=== PATIENT | female | born 1970 | race Caucasian/White ===

== ENCOUNTER 2017-07-17 12:04 | Observation (INO) ==
[2017-07-17] MEDS ORDERED: Levofloxacin 500 MG/100 ML 500 MG/100 ML BAG IVPB ONE (12:34)
[2017-07-17] MEDS ORDERED: Albuterol 2.5 MG/3 ML NEBULIZER IH ONE (12:34)
[2017-07-17] MEDS ORDERED: Plasma-Lyte A (PH 7.4) 1,000 ML IVC SCH (12:45)
[2017-07-17] MEDS ORDERED: Famotidine 20 MG/2 ML VIAL IVP ONE (14:28)
[2017-07-17] MEDS ORDERED: Metoclopramide 10 MG/2 ML VIAL IVP ONE (14:28)
[2017-07-17] MEDS ORDERED: Pregabalin 50 MG CAPSULE PO STA (14:28)
[2017-07-17] MEDS ORDERED: Acetaminophen IV 1,000 MG/100 ML INFUS..BTL IVPB ONE (14:28)
--- NOTE | 2017-07-17 14:33 | Anesthesia Evaluation PreOp ---
Date of Encounter: 07/17/17 Time of Encounter: 14:31 - Past History Planned Operation: Pubovaginal sling w/ autologous fascia Cardiac History: Hyperlipidemia (previously maintained on a Statin currently), Other (Hx murmur) Pulmonary History: Former smoker, Asthma (Not hospitalizations, No intubations) , COPD (maintained Ventolin, Tessalon perles), Snore, DARIEL Dx (Possible, but not diagnosed) GIFTED TEACHER History: Denies Any Significant HX Other Medical History: Hepatic (Hepatic lesions [cancer?] awaiting CT scan for further work-up), GERD (maintained on Omeprazole), Other (Hx Cervical Ca s/p LEEP) Anesthesia History: No Prior Anesthetic Complications, Past Anesthesia (LAVH 2007, T&A, Patricia Sawant, Dental surgery 2018, L-eye surgery) Alcohol Use: none Drug use: none Medications and Allergies Albuterol Sulfate [Albuterol Inhaler] 2 puff IH Q6H PRN 10/12/15 [History] Benzonatate [Benzonatate] 100 mg PO TID PRN 07/17/17 [History] Guaifenesin/Pseudoephedrne HCl [Guaifenesin-Pse ER 600-60 mg] 1 tab PO BID PRN 07/17/17 [History] Omeprazole [PriLOSEC] 40 mg PO DAILY 07/17/17 [History] 3 Allergy/AdvReac Type Severity Reaction Status Date / Time Amoxicillin [From Amoxil] Allergy Hives Verified 07/17/17 13:22 ampicillin Allergy Hives Verified 07/17/17 13:22 Apple Allergy Hives Verified 07/17/17 13:22 Penicillins Allergy Hives Verified 07/17/17 13:22 dust Allergy Sneezing Uncoded 07/17/17 13:22 - Meds/Allergy Pre-op Review Medications Reviewed: Yes Allergies Reviewed: Yes Beta Blockers on Current Med List: No Anesthesia Results - Imaging EKG: image reviewed (90bpm SR) Anesthesia Exam O2 Sat Height 1.63 m Height 1.63 m Height 1.63 m Weight 93.894 kg Weight 93.894 kg Weight 93.894 kg O2 Sat by Pulse Oximetry 97 O2 Sat by Pulse Oximetry 97 Vital Signs Temp Pulse Resp BP Pulse Ox 98.9 F 67 18 114/74 97 07/17/17 12:23 07/17/17 12:23 07/17/17 12:23 07/17/17 12:23 07/17/17 12:23 Height: 5'5" Weight: 205# BMI = 35.5 NPO (# of Hours): MNoc Pain Scale Used: Numeric (1 - 10) - HEENT Pupil (Motor): Pupils equal, EOMI Mallampati: II Teeth: Edentulous Oral Opening: Greater than 3 - GIFTED TEACHER LOC: Oriented GIFTED TEACHER Motor: Normal RUE, Normal LUE, Normal RLE, Normal LLE, Normal Face GIFTED TEACHER Sensory: Normal: RUE, LUE, RLE, LLE, Face - Cardiac Rhythm: Regular Murmur: None - Pulmonary Breath Sounds: bilateral Clear Respiratory Effort: Symmetrical Anesthesia Assess/Plan ASA Score: 2 (Asthma, Obesity,) Modified [place] Scale for Level of Consciousness: Cooperative, oriented, and tranquil Anesthetic Plan: General Autologous Blood: Yes Monitoring Plan: Standard Monitors Recovery Plan: PACU Anes Supervising Prov Stmt: Pt seen/evaluated, R&B discussed, questions answered and consent obtained. Belen Powell MD
[2017-07-17] MEDS ORDERED: diazePAM 5 MG TABLET PO STA (15:05)
[2017-07-17] MEDS ORDERED: *HR* Propofol 200 MG/20 ML VIAL IVP ONE (15:23)
[2017-07-17] MEDS ORDERED: Ondansetron 4 MG/2 ML VIAL ONE (15:23)
[2017-07-17] MEDS ORDERED: *HR* FentaNYL (PF) 100 MCG/2 ML VIAL ONE (15:23)
[2017-07-17] MEDS ORDERED: Lidocaine -MPF 2% 2 ML VIAL ONE ×2 (15:23)
[2017-07-17] MEDS ORDERED: *HR* Succinylcholine 200 MG/10 ML VIAL IVP ONE (15:23)
[2017-07-17] MEDS ORDERED: *HR* Midazolam HCl 2 MG/2 ML VIAL ONE (15:23)
[2017-07-17] MEDS ORDERED: Dexamethasone 4 MG/ML VIAL ONE (15:23)
[2017-07-17] MEDS ORDERED: Ketorolac 30 MG/ML VIAL ONE (15:23)
--- NOTE | 2017-07-17 15:29 | History & Physical Report ---
Date of Encounter: 07/17/17 Time of Encounter: 15:28 24 Hour HP Update - Instructions Instructions: If the History and Physical is less than 30 days old and was completed prior to A.M. admission and or procedure and has NOT been updated on calendar day of procedure please complete this update prior to performing procedure. - Update Patient reports changes in Medical Condition: No Changes in examination, assessment, or condition: No Changes in Medication: No Preop tests/diagnostics Reviewed: Yes Surgery Remains Indicated: Yes Consent for Planned Operative Procedure(s) Verified: Yes - Pre-Operative Checklist Preoperative Checklist Indicated: Yes Prophylactic Antibiotic Ordered: Yes Home Medications Include Beta Thalia: No Is VTE Prophylaxis Indicated?: Yes
[2017-07-17] MEDS ORDERED: *HR* Rocuronium Bromide 50 MG/5 ML VIAL ONE (16:08)
[2017-07-17] MEDS ORDERED: Neostigmine Methylsulfate 3 MG/3 ML SYRINGE ONE (16:11)
[2017-07-17] MEDS ORDERED: Ketamine *HR* 500 MG/10 ML MDV ONE (16:12)
[2017-07-17] MEDS ORDERED: EPHEDrine 50 MG/ML VIAL ONE (16:28)
[2017-07-17] MEDS ORDERED: *HR* HYDROmorphone (PF) 1 MG/ML SYRINGE IVP PRN (16:34)
[2017-07-17] MEDS ORDERED: *HR* FentaNYL (PF) 100 MCG/2 ML VIAL IVP PRN (16:34)
[2017-07-17] MEDS ORDERED: *HR* Promethazine 25 MG/ML VIAL IVP PRN (16:34)
[2017-07-17] MEDS ORDERED: *HR* Morphine 10 MG/ML VIAL ONE (17:58)
--- NOTE | 2017-07-17 18:04 | Operative Note ---
Date of procedure: 07/17/17 Pre-op diagnosis: Stress incontinence Post-op diagnosis: same Procedure: Pubovaginal sling with autologous fascia Implants: 16 [place] Velez Complications: none Anesthesia: KIELA Surgeon: Kevin Greene Was there an product development assistant present: No Estimated blood loss (cc): 10 Specimen: none Condition: stable Disposition: PACU Procedure in Detail: Indications: Nicolasa is a 47-year-old woman who has a history of stress incontinence. She did not desire to have a mesh sling placed. She wished undergo a pubovaginal sling using her own fascia. She was informed of the risks of the procedure including but not limited to bleeding, infection, injury to other structures, need for further procedures, continued incontinence, urinary retention, new urgency, pain , wound complications, and the risk of anesthesia. She is willing to proceed. Procedure: After informed consent was obtained Patricia was brought back to the operating room and placed in the supine position. A timeout was performed. Gen. anesthesia was administered and an endotracheal tube was placed. She was then placed in lithotomy position. Her lower abdomen and genitalia were prepped in the usual sterile fashion. A Velez catheter was placed. A Pfannenstiel incision was made using a 15 blade. The subcutaneous tissues were dissected down using electrocautery. The anterior abdominal fascia was encountered. Skin flaps are mobilized off the fascia. I then marked out my fascia for the sling. The sling was 8 cm long by 2 cm wide. This was excised from the fascia using a scalpel and cautery. The fascia was mobilized off the rectus abdominis superiorly and laterally in order for a tension-free closure. 2-0 Nylon sutures were placed at the ends of the fascial sling and the fascial sling was placed in a irrigation bath. Attention was then moved to the vagina. The vaginal epithelium underneath the urethra was marked out. Local anesthetic was infiltrated. An incision was made. The vaginal epithelium was dissected off the urethra using sharp dissection. I then placed my finger underneath the urethra to the left and right sides. I was able to get underneath the pubic rami on both sides. I then confirmed the bladder was emptied. I then passed the uterine packing forceps from the vaginal wound into the abdominal wound just lateral to the rectus abdominis muscles. Ties were placed into this clamp and brought back down into the vaginal wound. This was performed on both the right and left sides. The cystoscope was then inserted. No evidence of perforation was noted at this time. No ureteral injury was identified. The sling was then attached to the strings and brought underneath the urethra conferring mobility on both the left and right sides. The center of the fascial sling was located just underneath the urethra. The ties were then placed superiorly through the rectus abdominis fascia. The abdomen was then irrigated. The fascia was closed using 0 Vicryl in an interrupted fashion. The sling was tied down with 3 fingerbreadths between the fascia and the knot. The wound was irrigated again. The subcutaneous tissue was closed in an interrupted fashion using 3-0 Vicryl suture. The skin was then closed using portillo. The abdomen was washed and dried and a dry sterile dressing was applied. The vaginal epithelium was then closed using a 2-0 Vicryl in a running fashion. Vaginal packing was placed. The catheter was left to drainage. The patient was then awakened from general anesthesia and brought to recovery room in good condition. All sponge, needle, and instrument counts were correct.
--- NOTE | 2017-07-17 18:57 | Anesthesia Evaluation Post Op ---
Date of Encounter: 07/17/17 Time of Encounter: 18:50 - Vital Signs Vital Signs: Vital Signs/O2 Sat/Glucose, Most Current Temp Pulse Resp BP Pulse Ox 07/17/17 18:47 98.2 F 86 16 115/66 96 07/17/17 18:37 98.8 F 99 16 121/66 94 07/17/17 18:27 110 18 116/79 95 07/17/17 18:17 74 16 102/60 97 07/17/17 18:07 99.0 F 74 15 107/55 96 - Lungs Lungs: Clear Ascult./Percussion - Airway Airway: Non-obstructed - Cardiovascular Regular Rate - Mental Status Mental Status: Alert & Oriented, Answers Appropriately - Pain Pain Scale: 1 - Nausea Vomiting Nausea Vomiting: Not Present - Hydration Hydration: NPO - Discharge PostOp Status: Transfer Patient to floor
[2017-07-17] MEDS ORDERED: Ketorolac 30 MG/ML VIAL IVP PRN (20:05)
[2017-07-17] MEDS ORDERED: Benzonatate 100 MG CAPSULE PO PRN (20:05)
[2017-07-17] MEDS ORDERED: Naloxone 0.4 MG/ML INJ IVP PRN (20:05)
[2017-07-17] MEDS ORDERED: Acetaminophen 325 MG TABLET PO PRN (20:05)
[2017-07-17] MEDS: Ondansetron 4 MG/2 ML VIAL IVP PRN (22:32)
[2017-07-17] MEDS: *HR* OxyCODONE Immed Rel 5 MG TABLET PO PRN (22:32)
[2017-07-18] MEDS: *HR* OxyCODONE Immed Rel 5 MG TABLET PO PRN ×3 (02:44→15:34)
--- NOTE | 2017-07-18 07:16 | Urology Progress Note ---
Date of Encounter: 07/18/17 Time of Encounter: 07:14 - Assessment and Plan (1) Stress incontinence Current Visit: Yes Status: Acute Assessment and plan: Postoperative Nurolon status post pubovaginal sling. Ambulate 3 times per day. Continue Vleez catheter today. Anticipate removal catheter tomorrow and we will begin clean intermittent catheterization tomorrow to monitor her postvoid residuals. Clear liquid diet for breakfast, advance as tolerated. Awaiting morning labs. Anticipate staying in the hospital today. I will move her to observation status. Progress Note Narrative: Postop day #1 status post pubovaginal sling. She is doing well. Oral medication and has controlled her pain adequately, but she is still very uncomfortable. She has tolerated liquids overnight. She is breathing well. Objective Initial Vital Signs Temp Pulse Resp BP Pulse Ox 98.9 F 67 18 114/74 97 07/17/17 12:23 07/17/17 12:23 07/17/17 12:23 07/17/17 12:23 07/17/17 12:23 - General physical appearance Present: well developed, well nourished, no distress - Respiratory Present: normal respiratory effort - Abdomen Present: soft (Bandage is clean. Appropriately tender. Velez in place. Urine is clear.) - VTE Documentation of Mechanical Device: Intermittent pneumatic compression device Consult Discharge Plan - Plan Referrals: Ilan Baker DO [Primary Care Provider] -
[2017-07-18] MEDS: *HR* Heparin 5,000 UNIT/ML VIAL SQ SCH ×2 (08:01→17:36)
[2017-07-18] MEDS ORDERED: levoFLOXacin 500 MG TABLET PO SCH (09:00)
[2017-07-18] MEDS: Ondansetron 4 MG/2 ML VIAL IVP PRN ×2 (09:20→15:34)
[2017-07-18 10:20] LABS: Basophils % 0.2 %; Hematocrit 36.9 % (35.3-44.9); Immature Granulocytes % 0.7 % (0-4); Lymphocytes # 0.7 K/mcL (0.6-4.6); Lymphocytes % 5.8 %; Mean Corpuscular HGB Conc 32.5 g/dL (31.6-35.5); Mean Corpuscular Hemoglobin 29.1 pg (28.0-33.3); Mean Corpuscular Volume 89.3 fL (83.0-100.0); Mean Platelet Volume 11.3 fL (9.4-12.4); Monocytes # 0.9 K/mcL (0.0-1.3); Monocytes % 7.3 %; Neutrophils # 10.9 K/mcL (1.6-8.9); Nucleated Red Blood Cells 0.6 /100 WBC (0); Platelet Count 283 K/mcL (140-400); Red Blood Count 4.13 M/mcL (3.82-4.97); Red Cell Distribution Width 12.5 % (11.5-14.5)
[2017-07-18 10:26] LABS: INR 1.1
[2017-07-18] MEDS ORDERED: 0.9 % Sodium Chloride 500 ML IVC ONE (16:58)
[2017-07-19] MEDS: *HR* OxyCODONE Immed Rel 5 MG TABLET PO PRN ×2 (00:08→09:06)
[2017-07-19] MEDS: *HR* Heparin 5,000 UNIT/ML VIAL SQ SCH (05:10)
--- NOTE | 2017-07-19 06:52 | Urology Progress Note ---
Date of Encounter: 07/19/17 Time of Encounter: 06:50 - Assessment and Plan (1) Stress incontinence Current Visit: Yes Status: Acute Assessment and plan: Postoperative #2 status post pubovaginal sling. She is doing well. 1. Catheter was removed today. We will have her void. Check residuals. Once her residuals are less than 150 mL on 3 consecutive postvoid checks, she can stop catheterizing. 2. Ambulate 3 times a day. 3. Continue heparin subcutaneous for DVT prophylaxis. 4. I will reassess this afternoon. If she is able to catheterize appropriately , we may be able to discharge home later today. Progress Note Narrative: Postoperative day #2 status post pubovaginal sling. Pain control is improved today. Catheter was removed. She is passing gas. She is tolerating regular diet better. Objective Initial Vital Signs Temp Pulse Resp BP Pulse Ox 98.9 F 67 18 114/74 97 07/17/17 12:23 07/17/17 12:23 07/17/17 12:23 07/17/17 12:23 07/17/17 12:23 - General physical appearance Present: well developed, well nourished, no distress - Respiratory Present: normal respiratory effort - Abdomen Present: soft (Incision is clean, dry, and intact. Rogers intact. No evidence of erythema.) - Labs 07/18/17 07:03 - VTE Documentation of Mechanical Device: Intermittent pneumatic compression device Consult Discharge Plan - Plan Instructions: How to Catheterize Yourself (Woman) (GEN) Referrals: Ilan Baker, [Primary Care Provider] -
[2017-07-19 15:15] VITALS: BP 103/66
--- NOTE | 2017-07-19 16:51 | Discharge Summary ---
Date of Encounter: 07/19/17 Time of Encounter: 16:49 - Discharge Diagnosis (1) Stress incontinence Priority: Primary Status: Acute - Discharge Medications Prescriptions: OxyCODONE Immed Rel [Roxicodone 5 MG] 10 mg PO Q4HR PRN 4 Days #20 tablet PRN Reason: Moderate Pain Docusate [Colace] 100 mg PO BID #60 capsule Home Medications: Albuterol Sulfate [Albuterol Inhaler] 2 puff IH Q6H PRN 10/12/15 [History] Benzonatate 100 mg PO TID PRN 07/17/17 [History] Guaifenesin/Pseudoephedrne HCl [Guaifenesin-Pse ER 600-60 mg] 1 tab PO BID PRN 07/17/17 [History] Omeprazole [PriLOSEC] 40 mg PO DAILY 07/17/17 [History] Docusate [Colace] 100 mg PO BID #60 capsule 07/19/17 [Rx] OxyCODONE Immed Rel [Roxicodone 5 MG] 10 mg PO Q4HR PRN 4 Days #20 tablet [Rx] Allergies/Adverse Reactions: 3 Allergy/AdvReac Type Severity Reaction Status Date / Time Amoxicillin [From Amoxil] Allergy Hives Verified 07/17/17 13:22 ampicillin Allergy Hives Verified 07/17/17 13:22 Apple Allergy Hives Verified 07/17/17 13:22 Penicillins Allergy Hives Verified 07/17/17 13:22 dust Allergy Sneezing Uncoded 07/17/17 13:22 Date of admission: 07/18/17 11:14 Primary care physician: Ilan Baker DO Consults: 07/18/17 07:16 Consult to Physical Therapy [CONS] Routine Comment: Evaluate, develop and implement POC Reason for Consult: Assist with ambulation. Discharging clinician: Kevin Greene Anticipated date of discharge: 07/19/17 - Patient Status Disposition: Home, Self-Care Condition: Good Functional capacity at discharge: independent ambulation Overall status at discharge: patient is progressing back to baseline - Discharge Instructions Instructions: How to Catheterize Yourself (Woman) (GEN) Follow Up With: Ilan Baker DO [Primary Care Provider] - Kevin Greene MD [Partnered Physician] - (1 week for staple removal.) Additional Instructions: POST-OPERATIVE DISCHARGE INSTRUCTIONS SLING [facility] [address] [place] [address] [address] Greene Office will schedule post operative check in 2 weeks. 1. Please Remember: No lifting greater than 20 lbs for 4 weeks. No exercising, straining, twisting, pushing, or pulling in the area of your surgery for [address] no longer needing pain medication. Do not soak in a bath or hot tub. No swimming for 2 weeks. You may shower. Do not allow bladder to overfill. Urinate at least every 4-6 hours. Increase fluids unless directed otherwise. It is common to have mild burning with urination, and leaking of urine. You may also experience spotting or bloody discharge from the vagina. Nothing per vagina ie: tampons or sexual intercourse for at least 6 weeks Ok to use a pad to manage vaginal bleeding Avoid constipation. Ok to use over the counter stool softner and increase water intake. 2. Call your physician immediately if you experience ANY of the following: Fever with a temperature greater that 101 F. Persistent nausea and vomiting. Severe pain- uncontrolled with prescription pain medication Inability to urinate after 6 hours. Excessive bleeding or the passage of large clots from the urethra or vagina. Redness, swelling, foul odor or white/green drainage from wound(s). Drug reactions- hives, rash, diarrhea, - Diet and Activity Activity: increase activity as tolerated Diet: advance to your usual diet - Hospital Course Hospital course: Ms. Orona is a 47 year old female who presented with stress incontinence. On 2 she underwent a pubovaginal sling with autologous fascia. She did well after surgery. Her bowel function improved. Her pain control improved and she was transitioned to oral medications. On POD #2 her catheter was removed. She was able to void afterwards. Her residuals were less than 100ml. She was tolerating general diet. She was discharged home in good condition on POD #2. - Time Spent with Patient Total time spent providing and/or coordinating discharge services: Less than 30 minutes Exam Initial Vital Signs Temp Pulse Resp BP Pulse Ox 98.9 F 67 18 114/74 97 07/17/17 12:23 07/17/17 12:23 07/17/17 12:23 07/17/17 12:23 07/17/17 12:23 - General physical appearance Present: well developed, well nourished, no distress - Eyes Absent: icteric - ENT Present: normal nares - Neck Present: trachea midline - Respiratory Present: normal respiratory effort - Cardiovascular Cardiovascular exam IM: RRR - Abdomen Abdomen: Present: soft - VTE Documentation of Mechanical Device: Intermittent pneumatic compression device
== END 2017-07-19 18:32 | disposition home or self-care (01) | DRG 514 ==
LOC: SAMDAY 12:04 → INTOOBSV 19:46 → 3ANU 19:46
PROVIDERS: ADMIT Urology; ATTEND Urology
PROC: [UNRECOGNIZED PROCEDURE] (2017-07-17 13:35)